=== PATIENT | female | born 1980 | race Caucasian/White ===

== ENCOUNTER 2019-01-07 21:41 | Emergency (ER) | payer MEDICAID, OTHER ==
[~2019-01-07] VITALS: Ht 167.6 cm; Wt 79.4 kg
[2019-01-07 22:04] VITALS: BP 123/81
== END 2019-01-08 00:59 | disposition left against medical advice (07) ==
LOC: ER 21:46
DX: M54.2 Cervicalgia (principal); R51 Headache; R07.9 Chest pain, unspecified; M54.6 Pain in thoracic spine; Z53.21 Procedure and treatment not carried out due to patient leaving prior to being seen by health care provider; W22.10XA Striking against or struck by unspecified automobile airbag, initial encounter; Y93.89 Activity, other specified; Y92.488 Other paved roadways as the place of occurrence of the external cause; Y99.8 Other external cause status
CPT/HCPCS: 70450; 71250; 72125; 72128; 72131